=== PATIENT | male | born 1940 | race Caucasian/White ===

== ENCOUNTER → 2018-09-18 | Outpatient (CLI) | payer MEDICARE, OTHER ==
[~2018-09-18] MED LIST: AZIT-1 PO; FAMO20TA9 PO; IBU600 PO; LEV500 PO; LOR5/325 PO; METF-450 PO; MOME15CR TP; PNEU0.5D3 IM; PRAV40TA78 PO; ROSU10TA5 PO; SIM10 PO; SIMV-49 PO
--- NOTE | 2018-09-18 11:38 | RADIOLOGY IMAGING REPORT ---
FACILITY: [facility] - [place] PATIENT NAME: Yoni Nixon : 1940 MR: [id number] V: [id number] EXAM DATE: ORDERING PHYSICIAN: JUANY FERNANDO TECHNOLOGIST: Location: [facility] Patient: Yoni Nixon : 1940 Visit/Account:[id number] Date of Sevice: 09/18/2018 Exam type: CHEST PA LAT History: Hypoxia, chronic respiratory failure Comparison: None. Findings: There is flattening the hemidiaphragms which can be seen with COPD. There is no evidence of acute ap pearing infiltrates, pleural effusions or overt pulmonary edema. Cardiac silhouette is normal in siz e. There are moderate degenerative changes of the left shoulder joint. IMPRESSION: 1. Hyperinflation lung of the [place] which can be seen with COPD Report Dictated By: Adelina Florian MD at 09/18/2018 11:33 AM Report E-Signed By: Adelina Florian MD at 09/18/2018 11:34 AM WSN:LAURENT
== END ==
LOC: RAD 10:01
PROVIDERS: ATTEND Emergency Medicine
DX: J96.11 Chronic respiratory failure with hypoxia (principal)
CPT/HCPCS: 71046

== ENCOUNTER → 2018-09-27 | Outpatient (CLI) | payer MEDICARE, OTHER ==
--- NOTE | 2018-09-27 09:31 | RADIOLOGY IMAGING REPORT ---
FACILITY: [facility] - [place] PATIENT NAME: Yoni Nixon : 1940 MR: [id number] V: [id number] EXAM DATE: ORDERING PHYSICIAN: JUANY FERNANDO TECHNOLOGIST: Location: [facility] Patient: Yoni Nixon : 1940 Visit/Account:[id number] Date of Sevice: 09/27/2018 EXAMINATION: Aorta ultrasound with duplex Doppler evaluation HISTORY: Smoking history COMPARISON: None. FINDINGS: Suprarenal abdominal aorta: 2.8 x 1.8 cm AP and transverse dimensions Superior infrarenal abdominal aorta: Not measured x not measured cm AP and transverse dimensions Mid infrarenal abdominal aorta: 1.6 x 1.3 cm AP and transverse dimensions Inferior infrarenal abdominal aorta: 1.9 x 1.7 cm AP and transverse dimensions Proximal common iliac artery diameter: Left 10 mm; right 11 mm Aorta wall: Negative. Aorta and proximal common iliac artery are patent by duplex Doppler ultrasound. IMPRESSION: No demonstration of an abdominal aortic aneurysm Report Dictated By: Adelina Florian MD at 09/27/2018 9:26 AM Report E-Signed By: Adelina Florian MD at 09/27/2018 9:27 AM WSN:LAURENT
== END ==
LOC: US 00:35
PROVIDERS: ATTEND Emergency Medicine
DX: J96.11 Chronic respiratory failure with hypoxia (principal); J44.9 Chronic obstructive pulmonary disease, unspecified; Z87.891 Personal history of nicotine dependence; R94.2 Abnormal results of pulmonary function studies
CPT/HCPCS: 93979